=== PATIENT | female | born 1990 | race American Indian/Alaskan Native ===

== ENCOUNTER 2016-11-28 09:33 | Observation (INO) | payer MEDICAID ==
[2016-11-28] MEDS ORDERED: LACTATED RINGERS 500 ML IV ONE (10:41)
[2016-11-28 10:44] LABS: Basophils % (Auto) 0.4 % (0.0-1.8); Eosinophils % (Auto) 0.4 % (0.0-4.3); Hematocrit 26.1 % (30.3-42.9); Hemoglobin 7.8 gm/dl (10.1-14.3); Mean Corpuscular HGB Conc 30 % (30-34); Platelet Count 283 K/mm3 (140-440); Red Blood Count 4.04 M/mm3 (3.65-5.03); Red Cell Distribution Width 18.6 % (13.2-15.2); White Blood Count 7.4 K/mm3 (4.5-11.0)
[2016-11-28 10:47] LABS: Mean Corpuscular Hemoglobin 19 pg (28-32); Mean Corpuscular Volume 65 fl (79-97)
[2016-11-28] MEDS ORDERED: NACL 0.9% 500 ML 500 ML IV ONE (10:54)
--- NOTE | 2016-11-28 12:00 | History and Physical Report ---
History of Present Illness Date of examination: 11/28/16 Date of admission: 11/28/16 11:08 Chief complaint: Anemia at 30 wks History of present illness: 25-year-old at 33 weeks is admitted for above issues and complaints, she is a [facility] patient. Essential history is patient with low hemoglobin status in clinic today. She is referred to [facility] for transfusion due to complaint of shortness of breath. care so far unremarkable, Past History Past Medical History: no pertinent history Past Surgical History: no surgical history TOURIST ESCORT History: denies: chlamydia, fibroids, HIV Social history: single, full code. denies: smoking, alcohol abuse, prescription drug abuse, IV drug use - Obstetrical History Expected Date of Delivery: 01/16/17 Actual Gestation: 33 Week(s) 0 Day(s) : 3 Para: 2 Medications and Allergies Allergies Allergy/AdvReac Type Severity Reaction Status Date / Time No Known Allergies Allergy Unverified 11/28/16 10:03 Review of Systems Constitutional: no fever, no chills Cardiovascular: no chest pain, no syncope, no lightheadedness, no shortness of breath Respiratory: no shortness of breath, no dyspnea on exertion Gastrointestinal: no abdominal pain, no nausea, no vomiting, no diarrhea, no BRBPR Genitourinary: no vaginal bleeding, no vaginal discharge, no leakage of fluid - Vital Signs Vital signs: Vital Signs Pulse BP 60 102/59 11/28/16 10:11 11/28/16 10:11 Temp Pulse Resp BP Pulse Ox 98.6 F 60 20 102/59 11/28/16 10:28 11/28/16 10:11 11/28/16 10:28 11/28/16 10:28 - Physical Exam Cardiovascular: Regular rate, Normal S1, Normal S2 Abdomen: Positive: normal appearance, soft. Negative: distention, tenderness, guarding, rigidity Results Result Diagrams: 11/28/16 10:14 Abnormal lab results 11/28/16 11/28/16 Range/Units 10:14 10:21 Hgb 7.8 L (10.1-14.3) gm/dl Hct 26.1 L (30.3-42.9) % MCV 65 L (79-97) fl MCH 19 L (28-32) pg RDW 18.6 H (13.2-15.2) % [place] % (Auto) 9.9 H (0.0-7.3) % Crossmatch See Detail All other labs normal. Assessment and Plan A: 25 y/o at 33 wks with symptomatic microcytic anemia -H/H here 7.8/, mcv 65 P: -Anemia work-up now -2 units PRBC -Will need to be scheduled with hematology on outpatient basis - Patient Problems (1) 33 weeks gestation of Current Visit: Yes Status: Acute (2) Anemia affecting in third trimester Current Visit: Yes Status: Acute
[2016-11-28] MEDS ORDERED: NACL 0.9% 500 ML 500 ML ONE (13:40)
[2016-11-28 14:34] LABS: Iron 17 ug/dL (37-170); Total Iron Binding Capacity 485 mcg/dL (250-450)
[2016-11-28 17:08] VITALS: BP 105/58
[2016-11-28] MEDS ORDERED: TYLENOL PO PRN (17:33)
== END 2016-11-28 18:15 | disposition home or self-care (01) ==
LOC: TRG 09:33 → LD 11:08
PROVIDERS: ADMIT Obstetrics & Gynecology; ATTEND Obstetrics & Gynecology
DX: O99.013 Anemia complicating pregnancy, third trimester (principal); Z3A.33 33 weeks gestation of pregnancy
CPT/HCPCS: 36415; 82747; 83550; 85025; 86850; 86900; 86901; 86920; 96360; G0378; J7040; P9016

== ENCOUNTER 2016-12-04 09:34 | Outpatient (CLI) | payer MEDICAID ==
[2016-12-04] MEDS ORDERED: LACTATED RINGERS 500 ML IV ONE (10:30)
[2016-12-04] MEDS ORDERED: VENOFER IV ONE (11:00)
[2016-12-04] MEDS ORDERED: NACL 0.9% IV ONE (11:00)
== END 2016-12-04 13:37 | disposition home or self-care (01) ==
LOC: TRG 09:34
PROVIDERS: ATTEND Obstetrics & Gynecology
DX: O77.9 Labor and delivery complicated by fetal stress, unspecified (principal); O47.03 False labor before 37 completed weeks of gestation, third trimester; Z3A.32 32 weeks gestation of pregnancy
CPT/HCPCS: 59025; 96365; 96366; J1756; J7050

== ENCOUNTER 2019-08-05 17:11 | Emergency (ER) | payer MEDICAID ==
--- NOTE | 2019-08-05 17:32 | Event Note ---
ED Screening Note ED Screening Note: pt presents N/V for two weeks states she has had a SEAY times two weeks using zofran and phenergan suppository she is currently 14 weeks, [employer], has had care and ultrasounds no dysuria no diarrhea no vaginal bleeding no fever /P:2/A:0 PMHx anemia no allergies to meds This initial assessment/diagnostic orders/clinical plan/treatment(s) is/are subject to change based on patients health status, clinical progression and re- assessment by fellow clinical providers in the ED. Further treatment and workup at subsequent clinical providers discretion. Patient/guardian urged not to elope from the ED as their condition may be serious if not clinically assessed and managed. Initial orders include: labs, UA
[2019-08-05 18:34] LABS: Basophils % (Auto) 0.3 % (0.0-1.8); Eosinophils # (Auto) 0.1 K/mm3 (0.0-0.4); Hematocrit 33.8 % (30.3-42.9); Lymphocytes # (Auto) 1.5 K/mm3 (1.2-5.4); Lymphocytes % (Auto) 20.4 % (13.4-35.0); Mean Corpuscular HGB Conc 33 % (30-34); Mean Corpuscular Volume 80 fl (79-97); Monocytes # (Auto) 0.5 K/mm3 (0.0-0.8); Monocytes % (Auto) 6.9 % (0.0-7.3); Platelet Count 203 K/mm3 (140-440); Red Blood Count 4.23 M/mm3 (3.65-5.03); Red Cell Distribution Width 15.6 % (13.2-15.2)
[2019-08-05 18:50] LABS: Bacteria,Urine 1+ /HPF (Negative); Bilirubin,Urine NEG (Negative); Blood,Urine NEG (Negative); Color,Urine Yellow (Yellow); Mucus,Urine FEW /HPF; Protein,Urine <15 mg/dL mg/dL (Negative); Urobilinogen,Urine < 2.0 mg/dL (<2.0)
[2019-08-05 19:02] LABS: Alanine Aminotransferase 7 units/L (7-56); Albumin 3.6 g/dL (3.9-5); BUN/Creatinine Ratio 18; Blood Urea Nitrogen 9 mg/dL (7-17); Calcium 8.9 mg/dL (8.4-10.2); Hemolysis Index 3
--- NOTE | 2019-08-05 19:11 | Emergency Department Report ---
ED General Adult HPI - General Chief complaint: Nausea/Vomiting/Diarrhea Stated complaint: 15WKS CANT KEEP DOWN FOOD Time Seen by Provider: 08/05/19 18:45 Source: patient Mode of arrival: Ambulatory Limitations: No Limitations - History of Present Illness Initial comments: She is a 28-year-old female that presents emergency room with complaints of nausea vomiting and headache. Patient states she has had nausea for multiple days and has vomited multiple times. Patient is also complaining of abdominal cramping. Patient states last time she is able to hold any water down was 2 days ago. Patient states the last time she is able to hold food down was 5 days ago. Patient states her [employer] as an [place]. Patient states she is a . Patient denies fever and chills. Patient denies syncope. Patient denies chest pain shortness of breath. Patient states her headache is a 7 out of 10. Patient states the pain is better with rest and worse with exertion and vomiting. Patient denies dizziness. Patient denies blurry vision. Patient de nies neck pain. Patient denies fever and chills. -: Sudden Location: head Severity scale (0 -10): 7 Quality: aching Improves with: rest Worsens with: other Associated Symptoms: headaches, nausea/vomiting. denies: confusion, chest pain, cough, diaphoresis, fever/chills, loss of appetite, malaise, rash, seizure, shortness of breath, syncope, weakness - Related Data Previous Rx's Medication Instructions Recorded Last Taken Type Ibuprofen [Motrin] 600 mg PO Q8H PRN #20 tablet 10/05/18 Unknown Rx Ondansetron [Zofran Odt] 4 mg PO Q6HR PRN #15 tab.rapdis 08/05/19 Unknown Rx Allergies Allergy/AdvReac Type Severity Reaction Status Date / Time No Known Allergies Allergy Unverified 11/28/16 10:03 ED Review of Systems ROS: Stated complaint: 15WKS CANT KEEP DOWN FOOD Other details as noted in HPI Constitutional: denies: chills, fever Eyes: denies: eye pain, eye discharge, vision change ENT: denies: ear pain, throat pain Respiratory: denies: cough, shortness of breath, wheezing Cardiovascular: denies: chest pain, palpitations Endocrine: no symptoms reported Gastrointestinal: nausea, vomiting. denies: abdominal pain, diarrhea Genitourinary: denies: urgency, dysuria, discharge Musculoskeletal: denies: back pain, joint swelling, arthralgia Skin: denies: rash, lesions Neurological: headache. denies: weakness, paresthesias Psychiatric: denies: anxiety, depression Hematological/Lymphatic: denies: easy bleeding, easy bruising ED Past Medical Hx - Past Medical History Previous Medical History?: Yes Hx Hypertension: No Hx Diabetes: No Hx Deep Vein Thrombosis: No Hx Renal Disease: No Hx Sickle Cell Disease: No Hx Seizures: No Hx Asthma: No Hx HIV: No Additional medical history: anemic - Surgical History Past Surgical History?: No - Family History Family history: no significant - Social History Smoking Status: Never Smoker Substance Use Type: None - Medications Home Medications: Home Medications Medication Instructions Recorded Confirmed Last Taken Type Ibuprofen [Motrin] 600 mg PO Q8H PRN #20 tablet 10/05/18 Unknown Rx Ondansetron [Zofran Odt] 4 mg PO Q6HR PRN #15 tab.rapdis 08/05/19 Unknown Rx ED Physical Exam - General Limitations: No Limitations General appearance: alert, in no apparent distress - Head Head exam: Present: atraumatic, normocephalic - Eye Eye exam: Present: normal appearance - ENT ENT exam: Present: mucous membranes moist - Neck Neck exam: Present: normal inspection - Respiratory Respiratory exam: Present: normal lung sounds bilaterally. Absent: respiratory distress, wheezes, rales - Cardiovascular Cardiovascular Exam: Present: regular rate, normal rhythm. Absent: systolic murmur, diastolic murmur, rubs, gallop - GI/Abdominal GI/Abdominal exam: Present: soft, normal bowel sounds. Absent: distended, tenderness, guarding, rebound - Extremities Exam Extremities exam: Present: normal inspection - Back Exam Back exam: Present: normal inspection - Neurological Exam Neurological exam: Present: alert, oriented X3 - Psychiatric Psychiatric exam: Present: normal affect, normal mood - Skin Skin exam: Present: warm, dry, intact, normal color. Absent: rash ED Course Vital Signs 08/05/19 08/05/19 17:31 21:08 Temperature 98.3 F Pulse Rate 81 Respiratory 16 16 Rate Blood Pressure 121/80 O2 Sat by Pulse 97 Oximetry - Reevaluation(s) Reevaluation #1: She states she has vomited 3 more times while in the ER. Patient will be given another dose of Zofran and morphine fluids. 08/05/19 20:45 Reevaluation #2: Patient given a second dose of Zofran. Patient tolerated by mouth Tylenol and water. Patient also tolerated another by mouth challenge with a large glass of water. 08/05/19 22:11 Reevaluation #3: Patient tolerated by mouth liquids and by mouth food. We will do heart tones as requested by Dr. Graf 08/05/19 22:44 Feel heart tones done by bedside nurse and the heart rate at 163 08/05/19 23:06 - Consultations Consultation #1: discussed case with [employer] human resources compensation analyst, Dr. Graf. Dr. Graf recommends Phenergan rectally when necessary and reassess and heart tones. 08/05/19 21:[address] Graf again. Dr. Graf agrees patient stable for discharge. 08/05/19 23:12 ED Medical Decision Making - Lab Data Result diagrams: 08/05/19 17:59 08/05/19 17:59 - Medical Decision Making Patient is a 28-year-old female that presents emergency room with complaints of nausea vomiting. Patient is 15 weeks . Patient had intractable nausea and vomiting until she was given Zofran and fluids. Patient responded well to treatment. Patient tolerated by mouth intake and was able to eat a meal in the ER. I discussed the case with [employer] and they agree with the patient stable for discharge. Recommendation received from [employer]. Heart tones were done and were normal. Patient and baby are stable. Patient discharged home and instructed to follow-up with her [employer]. Patient given a prescription for Zofran. Patient's labs essentially unremarkable. Patient also complained of headache and the headache resolved prior to discharge. Patient neurologically intact. Patient was stable for discharge. - Differential Diagnosis hyperemesis. Nausea vomiting. Critical Care Time: Yes Critical care attestation.: If time is entered above; I have spent that time in minutes in the direct care of this critically ill patient, excluding procedure time. Critical Care Time: 35 minutes ED Disposition Clinical Impression: Hyperemesis Nausea & vomiting Qualifiers: Vomiting type: unspecified Vomiting Intractability: non-intractable Qualified Code(s): R11.2 - Nausea with vomiting, unspecified Qualifiers: Weeks of gestation: 15 weeks Qualified Code(s): Z3A.15 - 15 weeks gestation of Disposition: DC-01 TO HOME OR SELFCARE Is pt being admited?: No Does the pt Need Aspirin: No Condition: Stable Instructions: (ED), Hyperemesis Gravidarum (ED), Acute Headache (ED) Additional Instructions: Patient to follow-up with primary care in 2-3 days. Patient to follow-up with [employer] in 2-3 days. Patient to return to ER if condition worsens. Patient to rest. Patient to increase water. Patient to take meds as directed. Patient's take Tylenol or ibuprofen when necessary for pain. Patient start eating regularly and take a vitamin Prescriptions: Ondansetron [Zofran Odt] 4 mg PO Q6HR PRN #15 tab.rapdis PRN Reason: Nausea And Vomiting Referrals: PRIMARY CARE, [Primary Care Provider] - 2-3 Days Time of Disposition: 23:11
[2019-08-05] MEDS ORDERED: ONDANSETRON 4 MG/2 ML INJ IV ONE ×2 (19:30→20:57)
[2019-08-05] MEDS ORDERED: SODIUM CHLORIDE 0.9% 1000 ML 1,000 ML IV ONE ×2 (19:30→20:57)
[2019-08-05] MEDS ORDERED: ACETAMINOPHEN 500 MG TAB PO ONE (20:58)
[2019-08-05] MEDS ORDERED: PROMETHAZINE 25 MG RECT SUPP PR ONE (21:20)
[2019-08-06 06:15] VITALS: BP 116/70
== END 2019-08-05 23:35 | disposition home or self-care (01) ==
LOC: ED 17:11
DX: O21.0 Mild hyperemesis gravidarum (principal); O26.891 Other specified pregnancy related conditions, first trimester; R51 Headache; Z3A.15 15 weeks gestation of pregnancy
CPT/HCPCS: 36415; 80053; 81001; 85025; 96361; 96374; 96376; 99283; J2405; J7030